=== PATIENT | female | born 1960 | race Caucasian/White ===

== ENCOUNTER 2020-09-19 23:47 | Emergency (ER) | payer BC ==
[2020-09-19 23:55] VITALS: RESP 16
[2020-09-19] MEDS ORDERED: SODIUM CHLORIDE 0.9% 1,000 ML IV STA (23:59)
--- NOTE | 2020-09-20 00:12 | ED ---
General Adult HPI - General Chief complaint: Syncope Stated complaint: Panic Attack Time Seen by Provider: 09/19/20 23:49 Source: patient, EMS Mode of arrival: EMS Limitations: no limitations - History of Present Illness Initial comments: 60 year-old female patient presents to the emergency department for evaluation of dizziness and headache. Patient states symptoms started just prior to the ambulance call. States that she feels very dizzy and cannot keep her eyes open. States she does feel somewhat nauseated denies any vomiting. She is reporting headache radiating 9 out of 10 on the pain scale. States she is having trouble focusing her vision. EMS crew states that family was in an argument when patient became dizzy and passed out. Patient denies any history of syncope. Denies any current medical conditions or use of medications. Denies any recent head injury. Denies alcohol or drug use. Denies any chest pain or shortness of breath. Patient denies any recent rash, fever, chills, cough, shortness of breath, chest pain, abdominal pain, diarrhea, constipation, back pain, numbness, tingling, hematuria, dysuria, urinary urgency, urinary frequency, or any other complaints. - Related Data Allergies Allergy/AdvReac Type Severity Reaction Status Date / Time No Known Allergies Allergy Verified 09/20/20 01:57 Review of Systems ROS Statement: Those systems with pertinent positive or pertinent negative responses have been documented in the HPI. ROS Other: All systems not noted in ROS Statement are negative. Past Medical History Past Medical History: No Reported History History of Any Multi-Drug Resistant Organisms: None Reported Past Surgical History: Hysterectomy Smoking Status: Current every day smoker Past Alcohol Use History: None Reported Past Drug Use History: None Reported General Exam Limitations: no limitations General appearance: alert, in no apparent distress, other (Physical well- developed, well-nourished adult female patient in no acute distress. Vital signs upon presentation are temperature 98.2F, pulse 84, respirations 16, blood pressure 140/87, pulse ox 100% on room air.) Eye exam: Present: normal appearance, PERRL, EOMI. Absent: scleral icterus, conjunctival injection, nystagmus, periorbital swelling ENT exam: Present: normal exam, normal oropharynx, mucous membranes moist Respiratory exam: Present: normal lung sounds bilaterally. Absent: respiratory distress, wheezes, rales, rhonchi, stridor Cardiovascular Exam: Present: regular rate, normal rhythm, normal heart sounds. Absent: systolic murmur, diastolic murmur, rubs, gallop, clicks GI/Abdominal exam: Present: soft, normal bowel sounds. Absent: distended, tenderness, guarding, rebound, rigid Neurological exam: Present: alert, oriented X3, CN II-XII intact, other (strength in all 4 extremities is 5/5. ) Psychiatric exam: Present: normal affect, normal mood Skin exam: Present: warm, dry, intact, normal color. Absent: rash Course Vital Signs 09/19/20 09/20/20 23:50 00:55 Temperature 98.2 F 97.6 F Pulse Rate 84 78 Respiratory 16 16 Rate Blood Pressure 140/87 123/73 O2 Sat by Pulse 100 97 Oximetry EKG Findings - EKG Comments: EKG Findings:: EKG obtained at 2353 shows normal sinus rhythm with a ventricular rate of 83, GA interval 140, QRS duration 92, QT 384, QTC 451. No evidence of ST elevation or depression. Medical Decision Making - Medical Decision Making 60 year-old female patient presented to the emergency department for evaluation of syncope, upon arrival was reporting dizziness and headache. Denies chest pain or dyspnea. Denies signifcant medical history or use of medications. Visible examination is unremarkable. She is neurologically intact with no focal deficits. EKG showed normal sinus rhythm. Labs reviewed and are unremarkable. Chest x-ray was negative. CT brain without contrast was negative. Upon reevaluation she is resting compared plan bed. She is reporting improve symptoms. Patient is requesting to be discharged. She is instructed to follow- up with her primary care physician for recheck in 1-2 days. Return parameters discussed in detail. She verbalizes understanding and agrees with this plan. - Lab Data Result diagrams: 09/20/20 00:43 09/20/20 00:43 Lab Results 09/20/20 09/20/20 09/20/20 Range/Units 00:33 00:43 00:43 WBC 7.2 (3.8-10.6) k/uL RBC 4.48 (3.80-5.40) m/uL Hgb 13.7 (11.4-16.0) gm/dL Hct 41.8 (34.0-46.0) % MCV 93.2 (80.0-100.0) fL MCH 30.5 (25.0-35.0) pg MCHC 32.7 (31.0-37.0) g/dL RDW 12.4 (11.5-15.5) % Plt Count 302 (150-450) k/uL MPV 7.3 Neutrophils % 73 % Lymphocytes % 16 % Monocytes % 7 % Eosinophils % 2 % Basophils % 0 % Neutrophils # 5.3 (1.3-7.7) k/uL Lymphocytes # 1.2 (1.0-4.8) k/uL Monocytes # 0.5 (0-1.0) k/uL Eosinophils # 0.1 (0-0.7) k/uL Basophils # 0.0 (0-0.2) k/uL PT 10.5 (9.0-12.0) sec INR 1.0 (<1.2) APTT 21.1 L (22.0-30.0) sec Sodium (137-145) mmol/L Potassium (3.5-5.1) mmol/L Chloride (98-107) mmol/L Carbon Dioxide (22-30) mmol/L Anion Gap mmol/L BUN (7-17) mg/dL Creatinine (0.52-1.04) mg/dL Est GFR (CKD-EPI)AfAm (>60 ml/min/1.73 sqM) Est GFR (CKD-EPI)NonAf (>60 ml/min/1.73 sqM) Glucose (74-99) mg/dL POC Glucose (mg/dL) 127 H (75-99) mg/dL POC Glu Billing Associate ID Heft, Mya Calcium (8.4-10.2) mg/dL Magnesium (1.6-2.3) mg/dL Total Bilirubin (0.2-1.3) mg/dL AST (14-36) U/L ALT (4-34) U/L Alkaline Phosphatase (38-126) U/L Troponin I (0.000-0.034) ng/mL Total Protein (6.3-8.2) g/dL Albumin (3.5-5.0) g/dL Urine Color Urine Appearance (Clear) Urine pH (5.0-8.0) Ur Specific [place] (1.001-1.035) Urine Protein (Negative) Urine Glucose (UA) (Negative) Urine Ketones (Negative) Urine Blood (Negative) Urine Nitrite (Negative) Urine Bilirubin (Negative) Urine Urobilinogen (<2.0) mg/dL Ur Leukocyte Esterase (Negative) Urine RBC (0-5) /hpf Urine WBC (0-5) /hpf Ur Squamous Epith Cells (0-4) /hpf Urine Mucus (None) /hpf 09/20/20 09/20/20 09/20/20 Range/Units 00:43 00:43 00:43 WBC (3.8-10.6) k/uL RBC (3.80-5.40) m/uL Hgb (11.4-16.0) gm/dL Hct (34.0-46.0) % MCV (80.0-100.0) fL MCH (25.0-35.0) pg MCHC (31.0-37.0) g/dL RDW (11.5-15.5) % Plt Count (150-450) k/uL MPV Neutrophils % % Lymphocytes % % Monocytes % % Eosinophils % % Basophils % % Neutrophils # (1.3-7.7) k/uL Lymphocytes # (1.0-4.8) k/uL Monocytes # (0-1.0) k/uL Eosinophils # (0-0.7) k/uL Basophils # (0-0.2) k/uL PT (9.0-12.0) sec INR (<1.2) APTT (22.0-30.0) sec Sodium 137 (137-145) mmol/L Potassium 3.9 (3.5-5.1) mmol/L Chloride 103 (98-107) mmol/L Carbon Dioxide 27 (22-30) mmol/L Anion Gap 7 mmol/L BUN 12 (7-17) mg/dL Creatinine 0.60 (0.52-1.04) mg/dL Est GFR (CKD-EPI)AfAm >90 (>60 ml/min/1.73 sqM) Est GFR (CKD-EPI)NonAf >90 (>60 ml/min/1.73 sqM) Glucose 105 H (74-99) mg/dL POC Glucose (mg/dL) (75-99) mg/dL POC Glu Billing Associate ID Calcium 9.6 (8.4-10.2) mg/dL Magnesium 1.9 (1.6-2.3) mg/dL Total Bilirubin 0.5 (0.2-1.3) mg/dL AST 30 (14-36) U/L ALT 28 (4-34) U/L Alkaline Phosphatase 50 (38-126) U/L Troponin I <0.012 (0.000-0.034) ng/mL Total Protein 7.4 (6.3-8.2) g/dL Albumin 4.5 (3.5-5.0) g/dL Urine Color Yellow Urine Appearance Clear (Clear) Urine pH 7.0 (5.0-8.0) Ur Specific [place] 1.012 (1.001-1.035) Urine Protein Negative (Negative) Urine Glucose (UA) Negative (Negative) Urine Ketones Negative (Negative) Urine Blood Negative (Negative) Urine Nitrite Negative (Negative) Urine Bilirubin Negative (Negative) Urine Urobilinogen <2.0 (<2.0) mg/dL Ur Leukocyte Esterase Small H (Negative) Urine RBC 1 (0-5) /hpf Urine WBC 1 (0-5) /hpf Ur Squamous Epith Cells 1 (0-4) /hpf Urine Mucus Rare H (None) /hpf - Radiology Data Radiology results: report reviewed, image reviewed Two-view x-ray of the chest is obtained. Report was reviewed in its entirety. Impression by Dr. Rodriguez shows osteopenia. No active disease. CT brain without contrast was obtained. Report was reviewed in its entirety. Impression by Dr. Rodriguez shows no acute intracranial pathology is detected. Disposition Clinical Impression: Syncope, Dizziness, Headache Disposition: HOME SELF-CARE Condition: Good Instructions (If sedation given, give patient instructions): Syncope (ED), Acute Headache (ED), Dizziness (ED) Additional Instructions: Rest. Increase fluids. Follow up through primary care physician for recheck Tuesday. Return to the emergency department for any new, worsening, or concerning symptoms. Is patient prescribed a controlled substance at d/c from ED?: No Referrals: None,Stated [Primary Care Provider] - 1-2 days Time of Disposition: 02:23
[2020-09-20 00:36] LABS: Glucose,Whole Blood 127 mg/dL (75-99)
--- NOTE | 2020-09-20 01:08 | XR ---
EXAM: XR Chest, 2 Views CLINICAL HISTORY: Syncope. TECHNIQUE: Frontal and lateral views of the chest. COMPARISON: No previous study. FINDINGS: Lungs: The lungs are well aerated. Pleural space: No pleural effusions. No pneumothorax appeared Heart: Cardiomediastinal silhouette is unremarkable. Mediastinum: See above. Bones/joints: Osteopenia. Mild to moderate degenerative disc disease of the thoracic spine. IMPRESSION: 1. Osteopenia. 2. No active disease.
--- NOTE | 2020-09-20 01:10 | CT ---
EXAM: CT Head Without Intravenous Contrast CLINICAL HISTORY: Syncope. TECHNIQUE: Axial computed tomography images of the head/brain without intravenous contrast. CTDI is 50.8 mGy and DLP is 1062.4 mGy-cm. This CT exam was performed using one or more of the following dose reduction techniques: automated exposure control, adjustment of the mA and/or kV according to patient size, and/or use of iterative reconstruction technique. COMPARISON: No previous study. FINDINGS: Brain: No abnormal extra-axial collection appeared No hemorrhage. Midline shift: No midline shift or mass-effect. Midline anatomy is unremarkable. Ventricles: The ventricular system is age appropriate. Bones/joints: Calvarium is unremarkable. No acute fracture. Soft tissues: Unremarkable. Sinuses: Mild to moderate chronic ethmoid sinusitis. Mastoid air cells: Mastoid air cells are well pneumatized. IMPRESSION: 1. No acute intracranial pathology is detected. 2. If there is concern for etiology such as early acute lacunar infarcts, magnetic resonance imaging of the brain with diffusion-weighted sequences should be performed.
[2020-09-20 01:16] LABS: Basophils % (A) 0 %; Eosinophils # (A) 0.1 k/uL (0-0.7); Eosinophils % (A) 2 %; HCT 41.8 % (34.0-46.0); HGB 13.7 gm/dL (11.4-16.0); Lymphocytes # (A) 1.2 k/uL (1.0-4.8); Lymphocytes % (A) 16 %; MCH 30.5 pg (25.0-35.0); MCHC 32.7 g/dL (31.0-37.0); MCV 93.2 fL (80.0-100.0); Mean Platelet Volume 7.3; Monocytes # (A) 0.5 k/uL (0-1.0); Monocytes % (A) 7 %; Neutrophils # (A) 5.3 k/uL (1.3-7.7); Neutrophils % (A) 73 %; Platelet Count 302 k/uL (150-450); RBC 4.48 m/uL (3.80-5.40); RDW 12.4 % (11.5-15.5); WBC 7.2 k/uL (3.8-10.6)
[2020-09-20] MEDS ORDERED: KETOROLAC 15 MG/ML 1 ML VIAL IVP STA (01:17)
[2020-09-20 01:23] LABS: ALT 28 U/L (4-34); AST 30 U/L (14-36); African American GFR (CKD) >90 (>60 ml/min/1.73 sqM); Albumin 4.5 g/dL (3.5-5.0); Alkaline Phosphatase 50 U/L (38-126); Anion Gap 7 mmol/L; Blood Urea Nitrogen 12 mg/dL (7-17); Calcium 9.6 mg/dL (8.4-10.2); Carbon Dioxide 27 mmol/L (22-30); Chloride 103 mmol/L (98-107); Glucose 105 mg/dL (74-99); Magnesium 1.9 mg/dL (1.6-2.3); Non-African American GFR(CKD) >90 (>60 ml/min/1.73 sqM); Potassium 3.9 mmol/L (3.5-5.1); Sodium 137 mmol/L (137-145); Total Bilirubin 0.5 mg/dL (0.2-1.3); Total Protein 7.4 g/dL (6.3-8.2)
[2020-09-20 01:27] LABS: Prothrombin Time 10.5 sec (9.0-12.0)
[2020-09-20 01:36] LABS: Partial Thromboplastin Time 21.1 sec (22.0-30.0)
[2020-09-20] MEDS ORDERED: ACETAMINOPHEN TAB 500 MG TAB PO STA (01:38)
[2020-09-20 02:14] LABS: Appearance,Urine Clear (Clear); Bilirubin,Urine Negative (Negative); Blood,Urine Negative (Negative); Color,Urine Yellow; Glucose,Urine (UA) Negative (Negative); Ketones,Urine Negative (Negative); Leukocyte Esterase,Urine Small (Negative); Mucus,Urine Rare /hpf; Nitrite,Urine Negative (Negative); Protein,Urine Negative (Negative); RBC,Urine 1 /hpf (0-5); Specific Gravity,Urine 1.012 (1.001-1.035); Squamous Epithelial Cell,Urine 1 /hpf (0-4); Urobilinogen,Urine <2.0 mg/dL (<2.0); WBC,Urine 1 /hpf (0-5)
[2020-09-20 02:24] VITALS: BP 118/77; PULSE 83; TEMP 97.8
== END 2020-09-20 02:30 | disposition home or self-care (01) ==
LOC: EC 23:47
DX: R42 Dizziness and giddiness (principal); R55 Syncope and collapse; R51.9 Headache, unspecified; F17.200 Nicotine dependence, unspecified, uncomplicated
CPT/HCPCS: 36415; 70450; 71046; 80053; 81001; 83735; 84484; 85025; 85610; 85730; 87086; 93005; 96360; 99285

== ENCOUNTER 2021-10-25 00:20 | Emergency (ER) | payer BC ==
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
[2021-10-25 01:16] LABS: Basophils % (A) 0 %; Eosinophils # (A) 0.1 k/uL (0-0.7); Eosinophils % (A) 1 %; HCT 38.8 % (34.0-46.0); HGB 13.1 gm/dL (11.4-16.0); Lymphocytes # (A) 1.6 k/uL (1.0-4.8); Lymphocytes % (A) 17 %; MCH 31.9 pg (25.0-35.0); MCHC 33.9 g/dL (31.0-37.0); MCV 94.2 fL (80.0-100.0); Mean Platelet Volume 7.1; Monocytes # (A) 0.6 k/uL (0-1.0); Monocytes % (A) 6 %; Neutrophils # (A) 7.2 k/uL (1.3-7.7); Neutrophils % (A) 75 %; Platelet Count 408 k/uL (150-450); RBC 4.12 m/uL (3.80-5.40); RDW 12.9 % (11.5-15.5); WBC 9.6 k/uL (3.8-10.6)
[2021-10-25 01:20] LABS: Partial Thromboplastin Time 24.6 sec (22.0-30.0); Prothrombin Time 11.1 sec (9.0-12.0)
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
[2021-10-25 01:45] LABS: ALT 27 U/L (4-34); AST 30 U/L (14-36); Acetaminophen <10.0 ug/mL; African American GFR (CKD) >90 (>60 ml/min/1.73 sqM); Albumin 4.6 g/dL (3.5-5.0); Alcohol <10 mg/dL; Alkaline Phosphatase 55 U/L (38-126); Anion Gap 9 mmol/L; Blood Urea Nitrogen 11 mg/dL (7-17); Calcium 9.7 mg/dL (8.4-10.2); Carbon Dioxide 23 mmol/L (22-30); Chloride 107 mmol/L (98-107); Glucose 102 mg/dL (74-99); Non-African American GFR(CKD) >90 (>60 ml/min/1.73 sqM); Potassium 3.7 mmol/L (3.5-5.1); Salicylate <1.0 mg/dL; Sodium 139 mmol/L (137-145); Total Bilirubin 0.6 mg/dL (0.2-1.3); Total Protein 7.6 g/dL (6.3-8.2)
--- NOTE | 2021-10-25 02:26 | XR ---
EXAMINATION TYPE: XR humerus LT DATE OF EXAM: 10/25/2021 COMPARISON: NONE HISTORY: Pain TECHNIQUE: 2 views FINDINGS: There is no evidence of fracture nor dislocation. Glenohumeral joint is intact. Elbow joint is intact. IMPRESSION: Negative left humerus exam.
[2021-10-25 03:35] LABS: Appearance,Urine Clear (Clear); Bilirubin,Urine Negative (Negative); Blood,Urine Negative (Negative); Color,Urine Yellow; Glucose,Urine (UA) Negative (Negative); Ketones,Urine Negative (Negative); Leukocyte Esterase,Urine Negative (Negative); Nitrite,Urine Negative (Negative); PH, Urine 6.5 (5.0-8.0); Protein,Urine Negative (Negative); Urobilinogen,Urine <2.0 mg/dL (<2.0)
[2021-10-25 03:46] LABS: Amphetamine Screen,Urine Not Detected (NotDetected); Barbiturate Screen,Urine Not Detected (NotDetected); Benzodiazepines Screen,Urine Not Detected (NotDetected); Cocaine Screen,Urine Not Detected (NotDetected); Methadone Screen, Urine Not Detected (NotDetected); Opiate Screen,Urine Not Detected (NotDetected); Oxycodone Screen, Urine Not Detected (NotDetected); Phencyclidine Screen,Urine Not Detected (NotDetected); Tricyclic Antidepressant,Urine Not Detected (NotDetected); Urn Cannabinoid Scrn Not Detected (NotDetected)
[2021-10-25 05:02] VITALS: BP 145/87; PULSE 79; RESP 22; TEMP 98.4
== END 2021-10-25 04:45 | disposition home or self-care (01) ==
LOC: EC 00:20
DX: Z63.79 Other stressful life events affecting family and household (principal); F41.9 Anxiety disorder, unspecified; R41.82 Altered mental status, unspecified; F17.200 Nicotine dependence, unspecified, uncomplicated
CPT/HCPCS: 36415; 70450; 71045; 72125; 72170; 80053; 80143; 80179; 80306; 80320; 81003; 83735; 83930; 84484; 85025; 85610; 85730; 93005; 99284